=== PATIENT | male | born 1980 | race American Indian/Alaskan Native ===

== ENCOUNTER 2019-06-22 09:49 | Outpatient (CLI) | payer OTHER ==
--- NOTE | 2019-06-22 11:17 | Magnetic Resonance Report ---
MRI RIGHT KNEE WITHOUT CONTRAST INDICATION: SP/OP/MRI/RT KNEE/RIGHT ACL TEAR. COMPARISON: None available. TECHNIQUE: Multisequence, multiplanar images were obtained. FINDINGS: ACL: Normal. PCL: Normal. DISTAL QUADRICEPS TENDON: Normal. PATELLAR TENDON: Normal. MEDIAL MENISCUS: There is a vertical tear of the posterior horn of the medial meniscus. LATERAL MENISCUS: Normal. POSTEROLATERAL CORNER: Normal. MCL: Normal. LCL: Normal. DISTAL BICEPS FEMORIS TENDON: Normal. POPLITEUS TENDON: Normal. DISTAL IT BAND: Normal. ARTICULAR CARTILAGE: No chondrosis or articular cartilage defect. JOINT SPACE: No significant joint effusion or synovitis. No popliteal cyst. INTRA-ARTICULAR BODIES: None. BONES: No bone marrow edema. No fracture. No osseous lesion. SOFT TISSUES: No acute findings. ADDITIONAL FINDINGS: None. IMPRESSION: 1. Vertical tear of the posterior horn of the medial meniscus. 2. No ACL tear. Signer Name: Ronnie Fraser MD Signed: 06/22/2019 11:13 AM Workstation Name: [id number]
== END 2019-06-22 09:50 | disposition home or self-care (01) ==
LOC: SPVIMAG 09:49
DX: M23.221 Derangement of posterior horn of medial meniscus due to old tear or injury, right knee (principal)
CPT/HCPCS: 73721